=== PATIENT | male | born 1960 | race Caucasian/White ===

== ENCOUNTER 2017-04-22 16:36 | Emergency (ER) | payer OTHER ==
[~2017-04-22] VITALS: Ht 190.5 cm; Wt 102.0 kg
[~2017-04-22 16:36] MED LIST: NYST15T TOP; Z.0.NO CURRENT MEDS
[2017-04-22 16:37] VITALS: BP 186/90; PULSE 79; RESP 18; TEMP 98.8; O2SAT 97
[2017-04-22] MEDS ORDERED: BACT800T5 PO (17:05)
[2017-04-22] MEDS ORDERED: CEPH-460 PO (17:05)
--- NOTE | 2017-04-22 17:10 | PD ---
HPI Chief Complaint: Skin Problem Time Seen by Provider: 17:03 Travel History International Travel<30 days: No Contact w/Intl Traveler<30days: No Traveled to known affect area: No History of Present Illness HPI 57-year-old male here for evaluation of a wound on his right great toe. He reports that he cut his right great toe on a piece of metal in his yard 4 days ago. He has developed increased pain and redness to the skin since then. The pain is aching and worse with palpation or movement. No fevers, drainage. Last tetanus unknown. No other complaints. PFSH Past Medical History Cardiovascular Problems: Yes (HTN) Social History Alcohol Use: Yes Tobacco Use: Yes Allergies-Medications (Allergen,Severity, Reaction): Coded Allergies: No Known Allergies (Verified Adverse Reaction, Unknown, 04/22/17) Reported Meds & Prescriptions Reported Meds & Active Scripts Active Keflex (Cephalexin) 500 Mg Cap 500 Mg PO Q6H 10 Days Bactrim DS (Sulfamethoxazole-Trimethoprim) 800-160 Mg Tab 1 Tab PO BID Review of Systems General / Constitutional: No: Fever, Chills Musculoskeletal: Positive: Pain, No: Limited ROM Skin: Positive Other (positive for skin wound, redness, pain) Physical Exam Narrative GENERAL: Well-nourished male in no acute distress SKIN: Warm and dry. There is a laceration to the medial aspect of the right great toe. There is some surrounding cellulitis. There is no drainage or induration or fluctuance. CARDIOVASCULAR: Regular rate and rhythm. No murmur appreciated. RESPIRATORY: No accessory muscle use. Clear to auscultation. Breath sounds equal bilaterally. MUSCULOSKELETAL: Skin as noted above with no bony deformity, distal sensation is intact. NEUROLOGICAL: Awake and alert. No obvious cranial nerve deficits. Motor grossly within normal limits. Normal speech. Data Data Last Documented VS Vital Signs Date Time Temp Pulse Resp B/P (MAP) Pulse Ox O2 Delivery O2 Flow Rate FiO2 04/22/17 16:37 98.8 79 18 186/90 (122) 97 Room Air Orders Orders Sulfamet-Trimeth Ds 800-160 Mg (Bactrim (04/22/17 17:15) Cephalexin (Keflex) (04/22/17 17:15) Tetanus/Diphtheria Tox Adult (Tetanus/Di (04/22/17 17:15) [facility] Medical Decision Making Medical Screen Exam Complete: Yes Emergency Medical Condition: Yes Medical Record Reviewed: Yes Differential Diagnosis Cellulitis, abscess, laceration, erysipelas Narrative Course Examination is consistent with a 4 day old laceration with some surrounding cellulitic changes. Tetanus status updated. The patient is being started on Bactrim and Keflex. Diagnosis Primary Impression: Laceration of right great toe Additional Impression: Cellulitis of right foot Additional Instructions: Medication as prescribed. Wash the wound daily with soap and water and apply antibiotic cream and clean bandages. Follow-up with primary care and return for any emergent medical conditions. Med/Other Pt SpecificInfo: Prescription(s) given Scripts Cephalexin (Keflex) 500 Mg Cap 500 MG PO Q6H for Infection for 10 Days, #40 CAP 0 Refills Prov: Rhys Fisher MD 04/22/17 Sulfamethoxazole-Trimethoprim (Bactrim DS) 800-160 Mg Tab 1 TAB PO BID for Infection, #20 TAB 0 Refills Prov: Rhys Fisher MD 04/22/17 Disposition: 01 DISCHARGE HOME Condition: Stable Kemar Bo Apr 22, 2017 17:10
[2017-04-22] MEDS ORDERED: CEPHALEXIN MONOHYDRATE 500 MG CAP PO ONE (17:15)
[2017-04-22] MEDS ORDERED: SULFAMETHOXAZOLE-TRIMETHOPRIM DS 800-160 MG TAB PO ONE (17:15)
[2017-04-22] MEDS ORDERED: TETANUS/DIPHTHERIA TOXOID ADULT 0.5 ML VIAL IM ONE (17:15)
== END 2017-04-22 17:45 | disposition home or self-care (01) ==
LOC: NEPK 16:36
DX: S91.111A Laceration without foreign body of right great toe without damage to nail, initial encounter (principal); L03.115 Cellulitis of right lower limb; W26.8XXA Contact with other sharp object(s), not elsewhere classified, initial encounter; Y92.017 Garden or yard in single-family (private) house as the place of occurrence of the external cause; Z23 Encounter for immunization; I10 Essential (primary) hypertension
CPT/HCPCS: 90471; 90714